=== PATIENT | male | born 1970 | race Caucasian/White ===

== ENCOUNTER 2017-01-04 14:17 | Day surgery (SDC) | payer OTHER ==
[~2017-01-04] VITALS: Ht 170.2 cm; Wt 140.6 kg
[~2017-01-04 14:17] MED LIST: /MOXI40TA PO; ATEN100T PO; AUGM875T27 PO; AZIT500T PO; BENZ100C5 PO; LOPR1TAB6 PO; MELO15TA4 PO; OSEL75CA OR; PRED10TA2 PO; PRED20TA PO; PRED50TA2 PO; VENTAER IN
[2017-01-04] MEDS ORDERED: LR 1,000 ML IV SCH ×3 (14:30→20:45)
[2017-01-04] MEDS ORDERED: LIDOCAINE 2% INJ 100 MG/5 ML SDV (FOR ANES.) As Ordered ONE (17:30)
[2017-01-04] MEDS ORDERED: PROPOFOL 200 MG/20 ML VIAL As Ordered ONE (17:30)
[2017-01-04] MEDS ORDERED: MIDAZOLAM INJ 2 MG/2 ML VIAL (J2250) As Ordered ONE (17:30)
[2017-01-04] MEDS ORDERED: ROCURONIUM BROMIDE 50 MG/5 ML VIAL As Ordered ONE (17:30)
[2017-01-04] MEDS ORDERED: fentaNYL 100 MCG/2 ML INJECTION (J3010) As Ordered ONE ×2 (17:30→18:52)
[2017-01-04] MEDS ORDERED: BUPIVACAINE HCL 0.25% 30 ML VIAL As Ordered ONE (18:42)
[2017-01-04] MEDS ORDERED: METOCLOPRAMIDE INJ 10MG/2ML VIAL (J2765) As Ordered ONE ×2 (18:52→21:56)
[2017-01-04] MEDS ORDERED: BUPIVACAINE HCL 0.25% 30 ML VIAL XX ONE (19:03)
[2017-01-04] MEDS ORDERED: KETOROLAC 60 MG/2 ML VIAL (J1885) As Ordered ONE (20:05)
[2017-01-04] MEDS ORDERED: ONDANSETRON 4MG/2ML VIAL (J2405) As Ordered ONE (20:05)
[2017-01-04] MEDS ORDERED: NORCO, ANEXSIA 5/325MG TABLET (HYDROcodone/ACETAMINOPHEN) PO PRN ×3 (20:45)
[2017-01-04] MEDS ORDERED: fentaNYL 100 MCG/2 ML INJECTION (J3010) IV PRN (20:45)
[2017-01-04] MEDS ORDERED: ONDANSETRON 4MG/2ML VIAL (J2405) IV PRN (20:45)
[2017-01-04] MEDS ORDERED: METOCLOPRAMIDE INJ 10MG/2ML VIAL (J2765) IV PRN (21:45)
[2017-01-04 23:00] VITALS: BP 128/59
[2017-01-05] VITALS: BP 145/72
[2017-01-05 04:00] VITALS: BP 115/56
[2017-01-05 06:00] VITALS: BP 116/58
[2017-01-05] MEDS ORDERED: NORC5TAB PO (12:04)
--- NOTE | 2017-01-06 13:39 | RO ---
DATE OF PROCEDURE: 01/04/2017 PREOPERATIVE DIAGNOSIS: Inguinal adenopathy. POSTOPERATIVE DIAGNOSIS: Inguinal adenopathy. PROCEDURE PERFORMED: Excisional biopsy of left inguinal lymph node. SURGEON: Dr. James Garza DITCH INSPECTOR: RAJAN Knight ANESTHESIA: General. INDICATIONS FOR PROCEDURE: The patient is a 46-year-old man who in the course of follow-up imaging for a left hip prosthesis was found to have some significant bilateral inguinal adenopathy. This was felt to be suspicious enough to warrant biopsy and he is now for an open excisional biopsy of an inguinal node on the left. DESCRIPTION OF PROCEDURE: The patient was placed under general endotracheal anesthesia. The patient's lower abdomen and groins were prepped and draped in a sterile fashion. An approximately 6 to 7 cm slightly oblique skin incision was made low in the left lower quadrant, roughly paralleling the inguinal crease below the inferior abdominal fold just about at the level of the pubic tubercle. The incision was deepened through the abundant subcutaneous tissues. The superficial fascia was opened. By palpation, an enlarged node was identified. With slow, careful dissection, this was freed from surrounding structures. Several small vessels were clipped and divided. The node was quite large and was curved and was about 1-1/2 to 2 cm in diameter and perhaps 4 to 5 cm in length. It was quite fleshy. This was removed intact. A small portion was excised and sent in RPMI for tissue studies. The remaining node was inspected and had a fairly uniform fleshy appearance to the cut surface. This was sent in formaldehyde for permanent pathology. The wound was inspected. Hemostasis was ensured with the electrocautery. Several #3-0 Vicryl sutures were placed at the site of a small vessel that had some oozing, with cessation of bleeding. Several buried sutures of #3-0 chromic were placed. The subcutaneous tissues were closed with chromic, and the skin edges were approximated with a running subcuticular #4-0 Vicryl and Steri-Strips. A light dressing was applied. The patient tolerated the procedure well without apparent complication. He was awakened in the operating room, extubated and moved to the recovery room in stable condition. AYESHA
== END 2017-01-05 12:25 | disposition home or self-care (01) ==
LOC: M SDC 14:17 → M MS5PR 23:00 → M SDC 01-05 12:25
PROVIDERS: ATTEND Surgery
DX: C83.85 Other non-follicular lymphoma, lymph nodes of inguinal region and lower limb (principal); I49.8 Other specified cardiac arrhythmias; K44.9 Diaphragmatic hernia without obstruction or gangrene; G47.30 Sleep apnea, unspecified; Z79.899 Other long term (current) drug therapy; E66.01 Morbid (severe) obesity due to excess calories
CPT/HCPCS: 38500; 88305; J1885; J2250; J2405; J2765; J3010

== ENCOUNTER → 2017-02-15 | Outpatient (CLI) | payer OTHER ==
[~2017-02-15] MED LIST changes: +HYDR-3713 PO; +LIDOCAINE 2% MDV 20 ML VIAL As Ordered ONE; +LIDOCAINE W/EPINEPHRINE 1% 20ML VIAL As Ordered ONE; +LR 1,000 ML IV SCH; +METOCLOPRAMIDE INJ 10MG/2ML VIAL (J2765) IV PRN; +MIDAZOLAM INJ 2 MG/2 ML VIAL (J2250) As Ordered ONE; +NORC1TAB4 PO; +ONDANSETRON 4MG/2ML VIAL (J2405) IV PRN; +PERCOCET 5MG/325MG TAB PO PRN; +SODIUM BICARBONATE 8.4% INJ 50MEQ 50 ML VIAL As Ordered ONE; +fentaNYL 100 MCG/2 ML INJECTION (J3010) As Ordered ONE
[2017-02-15 12:10] VITALS: BP 117/67
--- NOTE | 2017-02-15 15:09 | REPKIM ---
CLINICAL HISTORY: Lymphoma and morbid obesity. The referring service has asked a bone marrow aspiration and biopsy for staging. PROCEDURE PERFORMED: Percutaneous left posterior iliac crest bone marrow aspiration and biopsy under fluoroscopic guidance INTERVENTIONALIST: Sachin Adams MD CAREER DEVELOPMENT MANAGER: TY Aguilar IV CONSENT: The risks, benefits and alternatives to the procedure were explained to the patient/family and informed written consent was obtained. SEDATION: Sedation and analgesia was provided by the Anesthesiology Dept. MEDICATIONS: Local Lidocaine EBL: 10 mL FLUORO TIME: 7.0 minutes PROCEDURE/FINDINGS: The patient was brought to the interventional radiology suite and was positioned in a prone position. The lower back was prepped and draped in the usual sterile fashion. Fluoroscopy of the pelvis imaging was obtained and the posterior superior iliac crest needle entry point was localized. Local anesthesia was administered subcutaneously and on the periosteal surface. A small skin incision was made and a garbsshidi 15-gauge bone marrow aspiration needle was inserted through the skin and into the posterior left iliac crest bone. The needle was manipulated until aspirate was obtained. Slides were prepared at the IR procedure room and an aspirate was collected. A total of 2 mL of aspirate was obtained, each aspirate of 0.5 mL. Using a similar fashion, aspiration was obtained and sent for flow cytometry. The aspiration needle was withdrawn and direct pressure was applied to the wound site. Local anesthesia was administered subcutaneously and on the periosteal surface. An 11 gauge Jamshidi biopsy needle was inserted and was directed to a different location on the bone in the posterior superior iliac crest, after local anesthetic. The needle was manipulated until a core biopsy was obtained. The biopsy needle was withdrawn and direct pressure applied to the wound site. Hemostasis was obtained by manual compression. A sterile dressing was applied. The patient tolerated the procedure well with no immediate complications. This procedure was performed using fluoroscopy. Dr. Adams was present. IMPRESSION: Posterior iliac crest bone marrow aspiration and biopsy on the left as discussed above. cc: Rolando Sun MD [facility]
== END | disposition home or self-care (01) ==
LOC: M IRPRO 08:43
PROVIDERS: ATTEND Internal Medicine Hematology & Oncology
DX: C85.90 Non-Hodgkin lymphoma, unspecified, unspecified site (principal); E66.01 Morbid (severe) obesity due to excess calories
CPT/HCPCS: 38220; 38221; 77002; 88300; 88305; 88311; 88313; C1830; J2250; J3010

== ENCOUNTER → 2017-08-14 | Outpatient (REF) | payer OTHER ==
[~2017-08-14] MED LIST changes: -LIDOCAINE 2% MDV 20 ML VIAL As Ordered ONE; -LIDOCAINE W/EPINEPHRINE 1% 20ML VIAL As Ordered ONE; -LR 1,000 ML IV SCH; -METOCLOPRAMIDE INJ 10MG/2ML VIAL (J2765) IV PRN; -MIDAZOLAM INJ 2 MG/2 ML VIAL (J2250) As Ordered ONE; -ONDANSETRON 4MG/2ML VIAL (J2405) IV PRN; -PERCOCET 5MG/325MG TAB PO PRN; -SODIUM BICARBONATE 8.4% INJ 50MEQ 50 ML VIAL As Ordered ONE; -fentaNYL 100 MCG/2 ML INJECTION (J3010) As Ordered ONE
== END ==
LOC: M LAB REF 10:23
PROVIDERS: ATTEND Physician Assistant
DX: J02.9 Acute pharyngitis, unspecified (principal)

== ENCOUNTER → 2018-09-22 | Outpatient (CLI) | payer OTHER | LOC: M SLEEP 19:28 | DX: G47.33 Obstructive sleep apnea (adult) (pediatric) (principal) | CPT/HCPCS: 95811 ==

== ENCOUNTER 2021-10-09 17:20 | Emergency (ER) | payer OTHER ==
[~2021-10-09] VITALS: Ht 170.2 cm; Wt 125.5 kg
[~2021-10-09 17:20] MED LIST changes: -/MOXI40TA PO; +AVEL1TAB2 PO; +MELO15TA28 PO; -MELO15TA4 PO; -NORC1TAB4 PO; +NORC1TAB7 PO
[2021-10-09] MEDS ORDERED: IMBR1CAP PO (17:28)
[2021-10-09] MEDS ORDERED: VALA500T5 PO (18:03)
[2021-10-09] MEDS ORDERED: BACT800T5 PO (18:03)
[2021-10-09] MEDS ORDERED: DULO30CA9 PO (18:03)
[2021-10-09] MEDS ORDERED: diphenhydrAMINE 50MG/ML VIAL (J1200) IV ONE (18:10)
[2021-10-09] MEDS ORDERED: ACETAMINOPHEN 500 MG TAB PO ONE (18:10)
[2021-10-09] MEDS ORDERED: KETOROLAC 30 MG/ML 1ML VIAL IV ONE (18:10)
[2021-10-09] MEDS ORDERED: NS 1,000 ML IV ONE (18:10)
[2021-10-09] MEDS ORDERED: PROCHLORPERAZINE 5 MG TAB (S0183) PO ONE (18:10)
[2021-10-09 18:51] LABS: HEMATOCRIT 44.1 % (42.0-52.0); HEMOGLOBIN 14.3 g/dl (13.5-17.5); MEAN CORPUSCULAR HEMOGLOBIN 31.7 pg (27.0-33.0); MEAN CORPUSCULAR HGB CONC 32.4 g/dl (32.0-36.5); MEAN CORPUSCULAR VOLUME 97.8 fl (80.0-96.0); PLATELET COUNT, AUTOMATED 203 10^3/uL (150-450); RED BLOOD COUNT 4.51 10^6/uL (4.30-6.10); WHITE BLOOD COUNT 8.7 10^3/uL (4.0-10.0)
[2021-10-09 19:18] LABS: ALBUMIN 3.3 GM/DL (3.2-5.2); ALT/SGPT 28 U/L (12-78); BILIRUBIN,TOTAL 0.5 MG/DL (0.2-1.0); BLOOD UREA NITROGEN 15 MG/DL (7-18); CALCIUM LEVEL 7.8 MG/DL (8.5-10.1); CARBON DIOXIDE LEVEL 26 MEQ/L (21-32); CHLORIDE LEVEL 111 MEQ/L (98-107); CREATININE FOR GFR 0.95 MG/DL (0.70-1.30); GLOMERULAR FILTRATION RATE > 60.0 (>56); GLUCOSE, FASTING 100 MG/DL (70-100); LIPASE 90 U/L (73-393); POTASSIUM SERUM 4.4 MEQ/L (3.5-5.1); SODIUM LEVEL 143 MEQ/L (136-145)
[2021-10-09 22:21] VITALS: BP 127/65
== END 2021-10-09 22:24 | disposition home or self-care (01) ==
LOC: M ED 17:20 → EDBD 17:20 → M ED 22:24
DX: R55 Syncope and collapse (principal); E86.1 Hypovolemia; C85.10 Unspecified B-cell lymphoma, unspecified site; Z91.040 Latex allergy status; Z79.899 Other long term (current) drug therapy
CPT/HCPCS: 70450; 71046; 80053; 83690; 84484; 85027; 93005; 96361; 96374; 96375; 99285; J1200; J1885

== ENCOUNTER 2021-11-09 11:43 | Outpatient (RCR) | payer OTHER ==
[~2021-11-09 11:43] MED LIST changes: +BACT800T5 PO; +DULO30CA9 PO; +IMBR1CAP PO; +VALA500T5 PO
== END 2021-11-11 ==
LOC: M PT 11:43
PROVIDERS: ATTEND Specialist
DX: Z96.641 Presence of right artificial hip joint (principal)

== ENCOUNTER 2021-12-08 11:20 | Outpatient (RCR) | payer OTHER | END 2021-12-12 | LOC: M PT 11:20 | PROVIDERS: ATTEND Specialist | DX: Z96.641 Presence of right artificial hip joint (principal) ==

== ENCOUNTER 2021-12-15 11:34 | Outpatient (RCR) | payer OTHER | END 2022-01-09 | LOC: M PT 11:34 | PROVIDERS: ATTEND Specialist | DX: Z47.89 Encounter for other orthopedic aftercare (principal); Z96.641 Presence of right artificial hip joint ==

== ENCOUNTER → 2022-04-27 | Outpatient (REF) | payer OTHER | LOC: M WUC 15:50 | PROVIDERS: ATTEND Physician Assistant | DX: J02.9 Acute pharyngitis, unspecified (principal) ==

== ENCOUNTER 2024-03-20 11:15 | Day surgery (SDC) | payer OTHER ==
[~2024-03-20] VITALS: Ht 170.2 cm; Wt 148.3 kg
[~2024-03-20 11:15] MED LIST changes: +BACTDSTA PO; +ESZO1TAB8 PO; +MELO7.5T35 PO; +UNRESOLVED CLARIFICATION ENTRY XX SCH
[2024-03-20] MEDS ORDERED: LR 1,000 ML IV SCH (11:30)
[2024-03-20] MEDS ORDERED: propofoL 200 MG/20 ML VIAL As Ordered ONE (12:37)
[2024-03-20] MEDS ORDERED: MIDAZOLAM INJ 2MG/2ML VIAL As Ordered ONE (12:37)
[2024-03-20] MEDS ORDERED: LIDOCAINE 2% 100MG/5ML SDV (FOR ANES.) As Ordered ONE (12:37)
[2024-03-20] MEDS ORDERED: fentaNYL 100 MCG/2 ML INJECTION As Ordered ONE (12:37)
[2024-03-20] MEDS ORDERED: ePHEDrine SULFATE 25 MG/5 ML(5MG/ML) SYRINGE As Ordered ONE (13:10)
[2024-03-20] MEDS ORDERED: ceFAZolin 1GM VIAL As Ordered ONE (13:17)
[2024-03-20] MEDS: ceFAZolin SOD 2 GM in IV 1 EA IV ONE (13:17)
[2024-03-20] MEDS ORDERED: ONDANSETRON 4MG 2ML VIAL As Ordered ONE (13:32)
[2024-03-20] MEDS ORDERED: KETOROLAC 60MG 2ML VIAL As Ordered ONE (13:32)
[2024-03-20] MEDS ORDERED: PHENYLephrine 500MCG 5ML (100MCG/ML) SYRINGE As Ordered ONE (13:33)
[2024-03-20] MEDS ORDERED: ONDANSETRON 4MG 2ML VIAL IV PRN (14:00)
[2024-03-20] MEDS ORDERED: MORPHINE 2 MG/ML 1ML VIAL IV PRN (14:00)
[2024-03-20] MEDS ORDERED: fentaNYL 100 MCG/2 ML INJECTION IV PRN (14:00)
[2024-03-20] MEDS ORDERED: oxyCODONE 5MG TAB PO PRN (14:00)
[2024-03-20] MEDS: SODIUM CHLORIDE 0.9% INJ 10 ML SYR IV PRN (15:02)
[2024-03-20 15:20] VITALS: BP 125/59; TEMP 97.1; O2SAT 93
== END 2024-03-20 15:21 | disposition home or self-care (01) ==
LOC: M SDC 11:15
PROVIDERS: ATTEND Surgery
DX: C85.16 Unspecified B-cell lymphoma, intrapelvic lymph nodes (principal); C83.08 Small cell B-cell lymphoma, lymph nodes of multiple sites; Z92.21 Personal history of antineoplastic chemotherapy; K44.9 Diaphragmatic hernia without obstruction or gangrene; G47.33 Obstructive sleep apnea (adult) (pediatric); E66.01 Morbid (severe) obesity due to excess calories; Z68.41 Body mass index [BMI] 40.0-44.9, adult; Z79.899 Other long term (current) drug therapy
CPT/HCPCS: 38500; 88305; J0665; J0690; J1100; J1885; J2250; J2371; J2405; J3010

== ENCOUNTER 2024-10-26 10:27 | Emergency (ER) | payer OTHER ==
[~2024-10-26] VITALS: Ht 170.2 cm; Wt 123.2 kg
[2024-10-26] MEDS: FILGRASTIM 300MCG 0.5ML SYRINGE **SC ADMINISTRATION ONLY SC ONE (09:00)
[~2024-10-26 10:27] MED LIST changes: -UNRESOLVED CLARIFICATION ENTRY XX SCH
[2024-10-26 10:30] VITALS: BP 139/62; TEMP 98.1; O2SAT 98
[2024-10-26] MEDS ORDERED: REVL20CA PO (10:35)
[2024-10-26] MEDS ORDERED: TIRZ2.5P3 (10:35)
[2024-10-26 11:47] LABS: HEMATOCRIT 41.2 % (42.0-52.0); HEMOGLOBIN 13.1 g/dl (13.5-17.5); MEAN CORPUSCULAR HEMOGLOBIN 28.4 pg (27.0-33.0); MEAN CORPUSCULAR HGB CONC 31.8 g/dl (32.0-36.5); MEAN CORPUSCULAR VOLUME 89.4 fl (80.0-96.0); PLATELET COUNT, AUTOMATED 120 10^3/uL (150-450); RED BLOOD COUNT 4.61 10^6/uL (4.30-6.10); WHITE BLOOD COUNT 1.5 10^3/uL (4.0-10.0)
[2024-10-26 11:59] LABS: INR 1.29; PARTIAL THROMBOPLASTIN TIME 29.7 SECONDS (24.8-34.2); PROTHROMBIN TIME 16.4 SECONDS (12.5-14.5)
[2024-10-26 12:16] LABS: ATYPICAL LYMPH 10 % (0-5); BASOPHILS 2 % (0-1); EOSINOPHILS 6 % (0-3); LYMPHOCYTES 17 % (16-44); METAMYELOCYTES 1 % (0-0); MONOCYTES 19 % (0-5); MYELOCYTES 1 % (0-0); NEUTROPHILS 30 % (28-66)
[2024-10-26 12:19] LABS: ANISOCYTOSIS 1+; OVALOCYTES 1+; PLATELET CLUMPS SMALL AMT; PLATELET ESTIMATE DECREASED (NORMAL); POIKILOCYTOSIS 1+
[2024-10-26 12:20] LABS: ALBUMIN 2.8 G/DL (3.2-5.2); BILIRUBIN,DIRECT 0.3 MG/DL (<0.4); BILIRUBIN,TOTAL 0.7 MG/DL (0.3-1.2); CALCIUM LEVEL 8.4 MG/DL (8.5-10.1); CREATININE FOR GFR 1.34 MG/DL (0.70-1.30); GLOMERULAR FILTRATION RATE 59.1 (>56); POTASSIUM SERUM 4.2 MMOL/L (3.5-5.1); TOTAL PROTEIN 5.9 G/DL (5.7-8.2)
[2024-10-26 12:21] LABS: CRENATED RBC 1+
[2024-10-26 12:26] LABS: ERYTHROCYTE SEDIMENTATION RATE 59 mm/hr (0-20); PROCALCITONIN 1.98 ng/ml
[2024-10-26 12:34] LABS: C REACTIVE PROTEIN QUANTITATIV 26.98 MG/DL (<1.0)
[2024-10-26] MEDS ORDERED: CIPR250T3 PO (13:56)
== END 2024-10-26 14:33 | disposition home or self-care (01) ==
LOC: M ED 10:27
DX: D70.9 Neutropenia, unspecified (principal); L03.116 Cellulitis of left lower limb; Z85.72 Personal history of non-Hodgkin lymphomas; G47.33 Obstructive sleep apnea (adult) (pediatric); Z96.642 Presence of left artificial hip joint; Z79.899 Other long term (current) drug therapy; Z91.89 Other specified personal risk factors, not elsewhere classified; Z91.040 Latex allergy status
CPT/HCPCS: 80048; 80076; 83605; 84145; 85025; 85610; 85652; 85730; 86140; 87040; 87486; 87581; 87633; 87798; 93971; 96372; 99283; J1442

== ENCOUNTER 2024-10-28 07:51 | Inpatient (IN) | payer OTHER ==
[~2024-10-28] VITALS: Ht 170.2 cm; Wt 127.2 kg
[~2024-10-28 07:51] MED LIST changes: +CIPR250T3 PO; +REVL20CA PO; +TIRZ2.5P3
[2024-10-28] MEDS ORDERED: SODIUM CHLORIDE 0.9% INJ 10 ML SYR IV PRN (08:50)
[2024-10-28] MEDS ORDERED: VANCOMYCIN/WATER FOR INJ (PEG) 2,000 MG in IV 1 EA IV ONE (08:55)
[2024-10-28] MEDS: NS (Normal Saline) 0.9% 1,000 ML IV ONE (09:35)
[2024-10-28 09:42] LABS: HEMATOCRIT 34.7 % (42.0-52.0); HEMOGLOBIN 11.6 g/dl (13.5-17.5); MEAN CORPUSCULAR HEMOGLOBIN 28.9 pg (27.0-33.0); MEAN CORPUSCULAR HGB CONC 33.4 g/dl (32.0-36.5); MEAN CORPUSCULAR VOLUME 86.3 fl (80.0-96.0); PLATELET COUNT, AUTOMATED 116 10^3/uL (150-450); RED BLOOD COUNT 4.02 10^6/uL (4.30-6.10); WHITE BLOOD COUNT 1.7 10^3/uL (4.0-10.0)
[2024-10-28] MEDS: PIPERACILLIN/TAZOBACTAM SOD 3.375 GM in DEXTROSE 5% (D5W) ADV/MINI-BAG 50 ML IV ONE (09:43)
[2024-10-28 10:12] LABS: ALBUMIN 2.1 G/DL (3.2-5.2); ALKALINE PHOSPHATASE 48 U/L (40-129); ALT/SGPT 19 U/L (7.0-40); AST/SGOT 17 U/L (<34); BILIRUBIN,TOTAL 0.3 MG/DL (0.3-1.2); BLOOD UREA NITROGEN 18 MG/DL (9-23); CALCIUM LEVEL 8.1 MG/DL (8.5-10.1); CARBON DIOXIDE LEVEL 26 MMOL/L (20-31); CHLORIDE LEVEL 102 MMOL/L (98-107); GLOMERULAR FILTRATION RATE > 60.0 (>56); GLUCOSE, FASTING 117 MG/DL (60-100); POTASSIUM SERUM 3.3 MMOL/L (3.5-5.1); SODIUM LEVEL 137 MMOL/L (136-145); TOTAL PROTEIN 5.2 G/DL (5.7-8.2)
[2024-10-28] MEDS: ACETAMINOPHEN 500 MG TAB PO ONE (10:27)
[2024-10-28 10:49] LABS: PROCALCITONIN 1.83 ng/ml
[2024-10-28 10:51] LABS: C REACTIVE PROTEIN QUANTITATIV 28.03 MG/DL (<1.0)
[2024-10-28 11:10] LABS: EOSINOPHILS 26 % (0-3); LYMPHOCYTES 28 % (16-44); MONOCYTES 34 % (0-5); NEUTROPHILS 12 % (28-66); PLATELET ESTIMATE DECREASED (NORMAL)
[2024-10-28] MEDS: VANCOMYCIN 1,000 MG/200 ML IV BAG *LOAD IV SCH (11:45)
[2024-10-28] MEDS ORDERED: MELO7.5T35 PO (12:16)
[2024-10-28] MEDS ORDERED: CIPR-249 PO (12:16)
[2024-10-28] MEDS ORDERED: HOME MED LIST COMPLETE! XX SCH (12:20)
[2024-10-28] MEDS: POTASSIUM CHLORIDE 10MEQ SR TABLET PO ONE (12:27)
[2024-10-28 12:55] VITALS: BP 110/68; TEMP 97.5; O2SAT 97
[2024-10-28] MEDS: HEPARIN SOD (PORCINE) 5000UNITS/ML 1ML VIAL/SYRINGE SC SCH (13:31)
[2024-10-28] MEDS ORDERED: zolPIDEM TARTRATE 5 MG TAB PO PRN (16:55)
[2024-10-28] MEDS: MAG SULF 1GM/100ML (MAG RUN) 1 GM in IV 1 EA IV SCH ×2 (19:00→23:33)
[2024-10-28 20:00] VITALS: BP 117/67; TEMP 97.5; O2SAT 96
[2024-10-28] MEDS: FILGRASTIM 480 MCG/0.8 ML SYRINGE **SC ADMINISTRATION ONLY SC SCH (21:11)
[2024-10-28] MEDS: VANCOMYCIN 1,250 MG/250 ML IV BAG IV SCH (21:11)
[2024-10-28] MEDS: KETOROLAC 30 MG/ML 1ML VIAL IV PRN (21:12)
[2024-10-28] MEDS: MELOXICAM (MOBIC) 7.5 MG TAB PO SCH (21:12)
[2024-10-28] MEDS: METOPROLOL TART 50 MG TAB PO SCH (21:13)
[2024-10-29 04:00] VITALS: BP 109/83; TEMP 97; O2SAT 91
[2024-10-29 07:48] LABS: HEMATOCRIT 31.9 % (42.0-52.0); HEMOGLOBIN 10.5 g/dl (13.5-17.5); MEAN CORPUSCULAR HEMOGLOBIN 28.8 pg (27.0-33.0); MEAN CORPUSCULAR HGB CONC 32.9 g/dl (32.0-36.5); MEAN CORPUSCULAR VOLUME 87.6 fl (80.0-96.0); PLATELET COUNT, AUTOMATED 145 10^3/uL (150-450); RED BLOOD COUNT 3.64 10^6/uL (4.30-6.10); WHITE BLOOD COUNT 2.9 10^3/uL (4.0-10.0)
[2024-10-29 08:09] LABS: BLOOD UREA NITROGEN 17 MG/DL (9-23); CALCIUM LEVEL 8.1 MG/DL (8.5-10.1); CARBON DIOXIDE LEVEL 26 MMOL/L (20-31); CHLORIDE LEVEL 103 MMOL/L (98-107); CREATININE FOR GFR 1.13 MG/DL (0.70-1.30); GLOMERULAR FILTRATION RATE > 60.0 (>56); GLUCOSE, FASTING 90 MG/DL (60-100); SODIUM LEVEL 138 MMOL/L (136-145)
[2024-10-29] MEDS: SODIUM CHLORIDE 0.9% INJ 10 ML SYR IV SCH (08:44)
[2024-10-29 08:57] LABS: C REACTIVE PROTEIN QUANTITATIV 22.43 MG/DL (<1.0)
[2024-10-29 09:04] LABS: PROCALCITONIN 1.11 ng/ml
[2024-10-29] MEDS: KETOROLAC 30 MG/ML 1ML VIAL IV PRN (13:03)
[2024-10-29] MEDS: FLUBLOK(EGGFREE) TRIVAL(24-25) VACCINE PF 0.5ML SYRINGE 18YRS & OLDER IM.IMMUN ONE (13:04)
[2024-10-29 13:40] VITALS: BP 113/83; TEMP 97.3; O2SAT 97
[2024-10-29 20:00] VITALS: BP 109/49; TEMP 97.3; O2SAT 96
[2024-10-29 20:08] VITALS: BP 109/49
[2024-10-29] MEDS: SODIUM CHLORIDE 0.9% INJ 10 ML SYR IV PRN (22:44)
[2024-10-30 05:15] VITALS: BP 122/64; TEMP 97.3; O2SAT 97
[2024-10-30 07:00] LABS: C REACTIVE PROTEIN QUANTITATIV 14.27 MG/DL (<1.0)
[2024-10-30 07:24] LABS: PROCALCITONIN 0.68 ng/ml
[2024-10-30] MEDS: ACETAMINOPHEN 325 MG TAB PO PRN (09:38)
[2024-10-30] MEDS ORDERED: SENNA 8.6 MG TAB (SENOKOT) PO PRN (09:55)
[2024-10-30] MEDS: MIRALAX *UNIT DOSE* 17GM PACKET PO ONE (10:47)
[2024-10-30] MEDS: FILGRASTIM 480 MCG/0.8 ML SYRINGE **SC ADMINISTRATION ONLY SC ONE (11:20)
[2024-10-30 12:00] VITALS: BP 106/54; TEMP 97.2; O2SAT 97
[2024-10-30 12:29] LABS: BASO # 0.1 10^3/uL (0.0-0.2); BASO % 1.8 % (0.0-1.0); EOS # 1.4 10^3/uL (0.0-0.5); EOS % 17.7 % (0.0-3.0); HEMATOCRIT 34.2 % (42.0-52.0); HEMOGLOBIN 11.1 g/dl (13.5-17.5); LYMPH % 13.3 % (24.0-44.0); MEAN CORPUSCULAR HEMOGLOBIN 28.5 pg (27.0-33.0); MEAN CORPUSCULAR HGB CONC 32.5 g/dl (32.0-36.5); MEAN CORPUSCULAR VOLUME 87.7 fl (80.0-96.0); MONO # 1.6 10^3/uL (0.0-0.8); MONO % 20.7 % (2.0-8.0); NEUTROPHILS # 3.4 10^3/uL (1.5-8.5); NEUTROPHILS % 44.2 % (36.0-66.0); PLATELET COUNT, AUTOMATED 201 10^3/uL (150-450); WHITE BLOOD COUNT 7.7 10^3/uL (4.0-10.0)
[2024-10-30 12:49] LABS: BLOOD UREA NITROGEN 15 MG/DL (9-23); CALCIUM LEVEL 8.1 MG/DL (8.5-10.1); CARBON DIOXIDE LEVEL 26 MMOL/L (20-31); CHLORIDE LEVEL 107 MMOL/L (98-107); CREATININE FOR GFR 0.99 MG/DL (0.70-1.30); GLOMERULAR FILTRATION RATE > 60.0 (>56); GLUCOSE, FASTING 109 MG/DL (60-100); POTASSIUM SERUM 3.8 MMOL/L (3.5-5.1); SODIUM LEVEL 141 MMOL/L (136-145)
[2024-10-30] MEDS ORDERED: ZYVO1TAB PO (13:39)
[2024-10-30] MEDS ORDERED: MIRALAX *UNIT DOSE* 17GM PACKET PO SCH (21:00)
== END 2024-10-30 15:23 | disposition home or self-care (01) | DRG 603 ==
LOC: M ED 07:51 → M ED INP 11:06 → M MSPAV 13:04
PROVIDERS: ADMIT Internal Medicine; ATTEND Internal Medicine
DX: L03.116 Cellulitis of left lower limb (principal); C88.40 Extranodal marginal zone B-cell lymphoma of mucosa-associated lymphoid tissue [MALT-lymphoma] not having achieved remission; E66.9 Obesity, unspecified; G47.30 Sleep apnea, unspecified; A46 Erysipelas; E83.42 Hypomagnesemia; E87.6 Hypokalemia; I73.9 Peripheral vascular disease, unspecified; R53.83 Other fatigue; I83.93 Asymptomatic varicose veins of bilateral lower extremities; D69.6 Thrombocytopenia, unspecified; D70.9 Neutropenia, unspecified; Z66 Do not resuscitate; Z79.1 Long term (current) use of non-steroidal anti-inflammatories (NSAID); Z79.899 Other long term (current) drug therapy; Z91.040 Latex allergy status; Z91.048 Other nonmedicinal substance allergy status; Z96.643 Presence of artificial hip joint, bilateral

== ENCOUNTER → 2025-01-11 | Outpatient (CLI) | payer OTHER ==
[~2025-01-11] MED LIST changes: +CIPR-249 PO; +ZYVO1TAB PO
[2025-01-11 09:48] LABS: BASO # 0.1 10^3/uL (0.0-0.2); BASO % 1.5 % (0.0-1.0); EOS # 0.1 10^3/uL (0.0-0.5); EOS % 1.4 % (0.0-3.0); HEMATOCRIT 36.2 % (42.0-52.0); HEMOGLOBIN 11.4 g/dl (13.5-17.5); LYMPH # 0.6 10^3/uL (1.5-5.0); MEAN CORPUSCULAR HEMOGLOBIN 29.5 pg (27.0-33.0); MEAN CORPUSCULAR HGB CONC 31.5 g/dl (32.0-36.5); MEAN CORPUSCULAR VOLUME 93.5 fl (80.0-96.0); MONO # 0.8 10^3/uL (0.0-0.8); MONO % 8.8 % (2.0-8.0); NEUTROPHILS # 7.6 10^3/uL (1.5-8.5); NEUTROPHILS % 81.8 % (36.0-66.0); PLATELET COUNT, AUTOMATED 182 10^3/uL (150-450); RED BLOOD COUNT 3.87 10^6/uL (4.30-6.10); WHITE BLOOD COUNT 9.3 10^3/uL (4.0-10.0)
[2025-01-11 10:38] LABS: C REACTIVE PROTEIN QUANTITATIV 9.27 MG/DL (<1.0); LDH LACTATE DEHYDROGENASE 626 U/L (120-246)
[2025-01-11 10:39] LABS: ALBUMIN 2.8 G/DL (3.2-5.2); ALKALINE PHOSPHATASE 52 U/L (40-129); ALT/SGPT 15 U/L (7.0-40); AST/SGOT 26 U/L (<34); BILIRUBIN,TOTAL 0.6 MG/DL (0.3-1.2); BLOOD UREA NITROGEN 17 MG/DL (9-23); CALCIUM LEVEL 8.3 MG/DL (8.5-10.1); CARBON DIOXIDE LEVEL 26 MMOL/L (20-31); CHLORIDE LEVEL 104 MMOL/L (98-107); CREATININE FOR GFR 1.26 MG/DL (0.70-1.30); GLOMERULAR FILTRATION RATE > 60.0 (>56); GLUCOSE, FASTING 111 MG/DL (60-100); POTASSIUM SERUM 4.5 MMOL/L (3.5-5.1); SODIUM LEVEL 139 MMOL/L (136-145); TOTAL PROTEIN 5.7 G/DL (5.7-8.2)
== END ==
LOC: M LAB 09:24
PROVIDERS: ATTEND Physician Assistant
DX: C85.80 Other specified types of non-Hodgkin lymphoma, unspecified site (principal)

== ENCOUNTER → 2025-02-14 | Outpatient (CLI) | payer OTHER ==
[2025-02-14 10:02] LABS: HEMATOCRIT 38.2 % (42.0-52.0); HEMOGLOBIN 12.3 g/dl (13.5-17.5); MEAN CORPUSCULAR HEMOGLOBIN 28.9 pg (27.0-33.0); MEAN CORPUSCULAR HGB CONC 32.2 g/dl (32.0-36.5); MEAN CORPUSCULAR VOLUME 89.9 fl (80.0-96.0); PLATELET COUNT, AUTOMATED 130 10^3/uL (150-450); RED BLOOD COUNT 4.25 10^6/uL (4.30-6.10); WHITE BLOOD COUNT 3.4 10^3/uL (4.0-10.0)
[2025-02-14 10:32] LABS: LDH LACTATE DEHYDROGENASE 140 U/L (120-246)
[2025-02-14 10:33] LABS: ALBUMIN 3.4 G/DL (3.2-5.2); ALKALINE PHOSPHATASE 54 U/L (40-129); ALT/SGPT 21 U/L (7.0-40); AST/SGOT 15 U/L (<34); BILIRUBIN,TOTAL 0.4 MG/DL (0.3-1.2); BLOOD UREA NITROGEN 19 MG/DL (9-23); CALCIUM LEVEL 8.5 MG/DL (8.5-10.1); CARBON DIOXIDE LEVEL 27 MMOL/L (20-31); CHLORIDE LEVEL 105 MMOL/L (98-107); CREATININE FOR GFR 1.12 MG/DL (0.70-1.30); GLOMERULAR FILTRATION RATE > 60.0 (>56); GLUCOSE, FASTING 99 MG/DL (60-100); POTASSIUM SERUM 4.3 MMOL/L (3.5-5.1); SODIUM LEVEL 141 MMOL/L (136-145); TOTAL PROTEIN 5.9 G/DL (5.7-8.2)
[2025-02-14 10:41] LABS: ATYPICAL LYMPH 9 % (0-5); BASOPHILS 4 % (0-1); EOSINOPHILS 26 % (0-3); LYMPHOCYTES 29 % (16-44); MONOCYTES 20 % (0-5); NEUTROPHILS 12 % (28-66)
[2025-02-14 10:44] LABS: ANISOCYTOSIS 1+; OVALOCYTES 1+; PLATELET ESTIMATE DECREASED (NORMAL)
== END ==
LOC: M LAB 09:04
PROVIDERS: ATTEND Physician Assistant
DX: C85.80 Other specified types of non-Hodgkin lymphoma, unspecified site (principal)

== ENCOUNTER → 2025-02-24 | Outpatient (CLI) | payer OTHER ==
[2025-02-24 17:53] LABS: BASO # 0.2 10^3/uL (0.0-0.2); BASO % 4.5 % (0.0-1.0); EOS # 0.7 10^3/uL (0.0-0.5); EOS % 15.8 % (0.0-3.0); HEMATOCRIT 38.1 % (42.0-52.0); HEMOGLOBIN 12.4 g/dl (13.5-17.5); LYMPH # 1.1 10^3/uL (1.5-5.0); LYMPH % 25.6 % (24.0-44.0); MEAN CORPUSCULAR HEMOGLOBIN 29.3 pg (27.0-33.0); MEAN CORPUSCULAR HGB CONC 32.5 g/dl (32.0-36.5); MEAN CORPUSCULAR VOLUME 90.1 fl (80.0-96.0); MONO # 1.1 10^3/uL (0.0-0.8); MONO % 26.6 % (2.0-8.0); NEUTROPHILS # 1.1 10^3/uL (1.5-8.5); NEUTROPHILS % 27.3 % (36.0-66.0); PLATELET COUNT, AUTOMATED 230 10^3/uL (150-450); RED BLOOD COUNT 4.23 10^6/uL (4.30-6.10); WHITE BLOOD COUNT 4.2 10^3/uL (4.0-10.0)
[2025-02-24 17:58] LABS: LDH LACTATE DEHYDROGENASE 203 U/L (120-246)
[2025-02-24 17:59] LABS: ALBUMIN 3.3 G/DL (3.2-5.2); ALKALINE PHOSPHATASE 56 U/L (40-129); ALT/SGPT 15 U/L (7.0-40); AST/SGOT 19 U/L (<34); BILIRUBIN,TOTAL 0.3 MG/DL (0.3-1.2); BLOOD UREA NITROGEN 13 MG/DL (9-23); CARBON DIOXIDE LEVEL 28 MMOL/L (20-31); CHLORIDE LEVEL 106 MMOL/L (98-107); CREATININE FOR GFR 0.95 MG/DL (0.70-1.30); GLOMERULAR FILTRATION RATE > 90.0 (>56); GLUCOSE, FASTING 85 MG/DL (60-100); POTASSIUM SERUM 4.4 MMOL/L (3.5-5.1); SODIUM LEVEL 142 MMOL/L (136-145); TOTAL PROTEIN 6.2 G/DL (5.7-8.2)
== END ==
LOC: M LAB 16:47
PROVIDERS: ATTEND Physician Assistant
DX: C85.80 Other specified types of non-Hodgkin lymphoma, unspecified site (principal)